=== PATIENT | male | born 1955 | race Caucasian/White ===

== ENCOUNTER 2020-02-14 17:15 | Emergency (ER) | payer SELFPAY | END 2020-02-14 19:00 | disposition home or self-care (01) | LOC: ERS 17:15 | DX: L40.9 Psoriasis, unspecified (principal); K21.9 Gastro-esophageal reflux disease without esophagitis; F41.9 Anxiety disorder, unspecified; F17.210 Nicotine dependence, cigarettes, uncomplicated; Z79.899 Other long term (current) drug therapy; F32.9 Major depressive disorder, single episode, unspecified | CPT/HCPCS: 99283 ==